=== PATIENT | female | born 1960 | race Caucasian/White ===

== ENCOUNTER 2022-08-02 01:01 | Emergency (ER) | payer BC ==
[~2022-08-02] VITALS: Ht 167.6 cm; Wt 95.3 kg
[2022-08-02] MEDS ORDERED: OMEPRAZOLE MAGN20 MG PO (01:09)
[2022-08-02] MEDS ORDERED: AUGMENTIN XR 11 EACH PO (01:26)
== END 2022-08-02 01:30 | disposition home or self-care (01) ==
LOC: ED 01:01
DX: S61.257A Open bite of left little finger without damage to nail, initial encounter (principal); Z88.8 Allergy status to other drugs, medicaments and biological substances; W55.01XA Bitten by cat, initial encounter; Y93.89 Activity, other specified; Y92.89 Other specified places as the place of occurrence of the external cause; Y99.8 Other external cause status

== ENCOUNTER 2025-04-17 21:07 | Emergency (ER) | payer BC ==
[~2025-04-17] VITALS: Ht 167.6 cm; Wt 95.3 kg
[~2025-04-17 21:07] MED LIST: AUGMENTIN XR 11 EACH PO; OMEPRAZOLE MAGN20 MG PO
[2025-04-17] MEDS ORDERED: FLUOXETINE40 MG PO (21:55)
[2025-04-17] MEDS ORDERED: Amoxicillin/Clavulanate Pota 875 MG TAB PO ONE (23:15)
[2025-04-17] MEDS ORDERED: MEDROL DOSEPAK4 MG PO (23:15)
[2025-04-17] MEDS ORDERED: AMOX-CLAV 875-1 EACH PO (23:15)
[2025-04-17] MEDS ORDERED: IBUPROFEN 600 MG TAB PO ONE (23:20)
[2025-04-17] MEDS ORDERED: predniSONE 20 MG TAB PO ONE (23:20)
== END 2025-04-17 23:37 | disposition home or self-care (01) ==
LOC: ED 21:07
DX: J01.00 Acute maxillary sinusitis, unspecified (principal); J01.10 Acute frontal sinusitis, unspecified; Z88.8 Allergy status to other drugs, medicaments and biological substances; Z79.899 Other long term (current) drug therapy